=== PATIENT | male | born 2000 | race Caucasian/White ===

== ENCOUNTER 2019-03-18 23:48 | Emergency (ER) | payer OTHER, SELFPAY ==
[2019-03-19] MEDS ORDERED: CODEINE 30MG/APAP 300MG TAB ONE (00:15)
--- NOTE | 2019-03-19 00:55 | ER ---
Nurse's Notes [facility] Name: Deep Ramos Age: 18 yrs Sex: Male : 2000 Arrival Date: 03/18/2019 Time: 23:59 Bed 2 Private MD: Diagnosis: Pain in left ankle and joints of left foot Presentation: 03/18 23:59 Presenting complaint: Patient states: I landed on my left ankle wrong about three days la1 ago and it has been hurting since. Transition of care: patient was not received from another setting of care. Onset of symptoms was March 19, 2019. Risk Assessment: Do you want to hurt yourself or someone else? Patient reports no desire to harm self or others. Initial Sepsis Screen: Does the patient meet any 2 criteria? No. Patient's initial sepsis screen is negative. Does the patient have a suspected source of infection? No. Patient's initial sepsis screen is negative. Care prior to arrival: None. 23:59 Method Of Arrival: Wheelchair la1 23:59 Acuity: KAIT 4 la1 Historical: - Allergies: 03/19 00:01 No Known Allergies; la1 - PMHx: 00:01 None; la1 - PSHx: 00:01 Hand sx; elbow sx; la1 - Immunization history:: Adult Immunizations up to date. - Social history:: Smoking status: Patient/guardian denies using tobacco. - Ebola Screening: : No symptoms or risks identified at this time. Screenin:12 Abuse screen: Denies threats or abuse. Denies injuries from another. Nutritional rr5 screening: No deficits noted. Tuberculosis screening: No symptoms or risk factors identified. Fall Risk Fall in past 12 months (25 points). Ambulatory Aid- Crutches/Cane/Walker (15 pts). Gait- Impaired (20 pts.). Total Dowell Fall Scale indicates High Risk Score (45 or more points). Fall prevention measures have been instituted. Side Rails Up X 2 Placed Close to Nursing Station Frequent Obs/Assessments Occuring Family Present and informed to notify staff if the need to leave the bedside As available patient and family educated on Fall Prevention Program and Strategies. Assessment: 00:13 General: Appears in no apparent distress. comfortable, Behavior is calm, cooperative, rr5 appropriate for age. Pain: Complains of pain in left ankle Pain does not radiate. Pain currently is 0 out of 10 on a pain scale. at worst was 8 out of 10 on a pain scale. Quality of pain is described as aching, Pain began 2-3 days ago. Is intermittent. Neuro: Level of Consciousness is awake, alert, obeys commands, Oriented to person, place, time, situation, Appropriate for age. Cardiovascular: Capillary refill < 3 seconds Patient's skin is warm and dry. Respiratory: Airway is patent Respiratory effort is even, unlabored, Respiratory pattern is regular, symmetrical. GI: No signs and/or symptoms were reported involving the gastrointestinal system. : No signs and/or symptoms were reported regarding the genitourinary system. EENT: No signs and/or symptoms were reported regarding the EENT system. Derm: Skin is intact, Skin temperature is warm. Musculoskeletal: Circulation, motion, and sensation intact. Capillary refill < 3 seconds, Reports pain in left ankle. 01:05 Reassessment: Patient appears in no apparent distress at this time. Patient is alert, rr5 oriented x 3, equal unlabored respirations, skin warm/dry/pink. discharge instruction given and explained without complaints made, verbalized understanding Patient states feeling better. Patient states symptoms have improved. Vital Signs: 00:01 BP 112 / 74; Pulse 86; Resp 16; Temp 98.4; Pulse Ox 100% on R/A; Weight 77.11 kg; la1 Height 5 ft. 11 in. (180.34 cm); 01:05 BP 121 / 85; Pulse 85; Resp 16; Pulse Ox 98% on R/A; rr5 00:01 Body Mass Index 23.71 (77.11 kg, 180.34 cm) la1 ED Course: 03/18 23:59 Patient arrived in ED. la1 03/19 00:00 Triage completed. la1 00:01 Arm band placed on left wrist. la1 00:03 Deny Flower NP is PHCP. pm1 00:03 Sancho Appiah MD is Attending Physician. pm1 00:03 Jose Daniel Cortes RN is Primary Nurse. rr5 00:15 Patient has correct armband on for positive identification. Bed in low position. Call rr5 light in reach. Side rails up X2. 00:40 Ankle Left 3 View XRAY In Process Unspecified. EDMS 01:00 ankle air splint applied to left ankle. rr5 01:05 No provider procedures requiring assistance completed. Patient did not have IV access rr5 during this emergency room visit. Administered Medications: 00:20 Drug: Tylenol #3 (300 mg-30 mg) 1 tablet {Note: rass 0.} Route: PO; rr5 Outcome: 00:54 Discharge ordered by MD. pm1 01:05 Discharged to home ambulatory, with crutches, with family. rr5 01:05 Condition: stable 01:05 Discharge instructions given to patient, Instructed on discharge instructions, follow up and referral plans. medication usage, Demonstrated understanding of instructions, follow-up care, medications, Prescriptions given X 1. 01:06 Patient left the ED. rr5 Signatures: Dispatcher [employer] EDMS Sandeep Davison RN RN la1 Deny Flower, MU [employer]ST[employer]ER pm1 Jose Daniel Cortes RN RN rr5
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
[2019-03-19 01:24] VITALS: BP 112/74; TEMP 98.4; O2SAT 100
--- NOTE | 2019-03-19 08:28 | RAD REPORT ---
EXAM DESCRIPTION: RAD - Ankle Left 3 View - 03/19/2019 12:39 am CLINICAL HISTORY: Persistent left ankle pain following trauma COMPARISON: None. FINDINGS: No fracture, dislocation or periosteal reaction. No joint effusion seen. No joint space na rrowing. No soft tissue abnormality. IMPRESSION: Negative left ankle for fracture or other acute finding.
== END 2019-03-19 01:06 | disposition home or self-care (01) ==
LOC: ER 23:48
DX: M25.572 Pain in left ankle and joints of left foot (principal)
CPT/HCPCS: 99284

== ENCOUNTER 2019-05-10 23:52 | Emergency (ER) | payer SELFPAY ==
[2019-05-11] MEDS ORDERED: LIDOCAINE 1% W/EPI 1:100,000 MDV 20 ML VIAL ONE (00:29)
[2019-05-11] MEDS ORDERED: NA CHLORIDE 0.9% 1,000 ML ONE (00:29)
[2019-05-11] MEDS ORDERED: CEFAZOLIN/SWI 1gm 1 GM/10 ML SYR ONE ×2 (00:30→01:30)
[2019-05-11] MEDS ORDERED: TETANUS & DIPHTHERIA TOX,ADULT 0.5 ML VIAL ONE (00:30)
[2019-05-11 00:49] LABS: Absolute Lymphocytes (CBC) 2.9 K/uL (0.7-4.9); Basophils % 0.4 % (0-1.3); Hematocrit 45.1 % (39.6-49.0); Lymphocytes % 18.7 % (15.3-44.8); MPV 9.2 fL (7.6-11.3); RBC Red Blood Cell Count 5.13 M/uL (4.33-5.43)
[2019-05-11 00:55] LABS: Protime INR 0.97
[2019-05-11 01:16] LABS: BUN Blood Urea Nitrogen 14 mg/dL (7-18); Bicarbonate 29 mmol/L (21-32); Glucose Level 142 mg/dL (74-106); Potassium 3.7 mmol/L (3.5-5.1); Sodium Level 143 mmol/L (136-145)
[2019-05-11 01:29] LABS: ALT/SGPT 47 U/L (12-78); AST/SGOT 28 U/L (15-37); Albumin 4.2 g/dL (3.4-5.0); Alkaline Phosphatase 80 U/L (45-117); Bilirubin Direct < 0.1 mg/dL (0-0.2); Bilirubin Total 0.4 mg/dL (0.2-1.0)
[2019-05-11] MEDS ORDERED: AMOX TR/K CLAV 400MG CHEW TAB PO ONE (01:45)
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
[2019-05-11] MEDS ORDERED: ONDANSETRON 4 MG/2 ML VIAL ONE (02:14)
[2019-05-11] MEDS ORDERED: MORPHINE 4 MG/ML SYR ONE (02:14)
[2019-05-11 04:25] VITALS: TEMP 100
[2019-05-11 04:27] VITALS: BP 127/73; O2SAT 99
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
== END 2019-05-11 02:46 | disposition home or self-care (01) ==
LOC: ER 23:52
PROC: 0JQ10ZZ Repair Face Subcutaneous Tissue and Fascia, Open Approach (ICD-10-PCS; principal; 2019-05-11)
DX: S02.40CA Maxillary fracture, right side, initial encounter for closed fracture (principal); S02.85XA Fracture of orbit, unspecified, initial encounter for closed fracture; S00.431A Contusion of right ear, initial encounter; Y04.8XXA Assault by other bodily force, initial encounter; Y93.9 Activity, unspecified; Z72.0 Tobacco use; Z23 Encounter for immunization
CPT/HCPCS: 36415; 70450; 70486; 71045; 72125; 76377; 80048; 80076; 80320; 80329; 85025; 85610; 85730; 86850; 86900; 86901; 90471; 90714; 96361; 96374; 96375; 99285; J0690; J2405; J7030

== ENCOUNTER 2019-06-03 16:02 | Emergency (ER) | payer SELFPAY ==
--- NOTE | 2019-06-03 17:16 | ER ---
Nurse's Notes [facility] Name: Deep Ramos Age: 18 yrs Sex: Male : 2000 Arrival Date: 06/03/2019 Time: 16:03 Bed 25 Private MD: Diagnosis: Encounter for removal of sutures Presentation: 06/03 16:59 Presenting complaint: Patient states: Sutures need removed from the right yazidism area. rb1 Denies fever and pain. Transition of care: patient was not received from another setting of care. Onset of symptoms was May 10, 2019. Risk Assessment: Do you want to hurt yourself or someone else? Patient reports no desire to harm self or others. 16:59 Method Of Arrival: Ambulatory [facility] 16:59 Acuity: KAIT 4 rb1 17:00 Initial Sepsis Screen: Does the patient meet any 2 criteria? No. Patient's initial tr5 sepsis screen is negative. Does the patient have a suspected source of infection? No. Patient's initial sepsis screen is negative. 18:05 Care prior to arrival: None. tr5 Triage Assessment: 17:00 General: Appears Behavior is calm, cooperative. tr5 17:01 Pain: Denies pain. Neuro: Level of Consciousness is awake, alert, obeys commands, rb1 Oriented to person, place, time, situation. Cardiovascular: Capillary refill < 3 seconds is brisk in bilateral fingers. Respiratory: Airway is patent Respiratory effort is even, unlabored, Respiratory pattern is regular, symmetrical. Derm: Skin is pink, warm \T\ dry. Historical: - Allergies: 17:01 No Known Allergies; rb1 - Home Meds: 17:01 None [Active]; rb1 - PMHx: 17:01 None; rb1 - PSHx: 17:01 Hand sx; elbow sx; rb1 - Immunization history:: Adult Immunizations up to date. - Social history:: Smoking status: unknown. - Ebola Screening: : Patient negative for fever greater than or equal to 101.5 degrees Fahrenheit, and additional compatible Ebola Virus Disease symptoms. Screenin:15 Abuse screen: Denies threats or abuse. Abuse screen: Denies threats or abuse. tr5 Nutritional screening: No deficits noted. Tuberculosis screening: No symptoms or risk factors identified. Fall Risk None identified. Assessment: 17:00 General: Appears in no apparent distress. Behavior is calm, cooperative, appropriate tr5 for age. Pain: Denies pain. Neuro: Level of Consciousness is awake, alert, obeys commands, Oriented to person, place, time, [employer] are equal bilaterally Moves all extremities. Cardiovascular: Heart tones present Capillary refill < 3 seconds. Respiratory: Airway is patent. GI: No signs and/or symptoms were reported involving the gastrointestinal system. : No signs and/or symptoms were reported regarding the genitourinary system. EENT: No signs and/or symptoms were reported regarding the EENT system. Derm: No signs and/or symptoms reported regarding the dermatologic system. Musculoskeletal: No signs and/or symptoms reported regarding the musculoskeletal system. Vital Signs: 17:01 BP 109 / 83; Pulse 68; Resp 16; Temp 98.9(TE); Pulse Ox 98% on R/A; Weight 77.11 kg rb1 (R); Height 5 ft. 11 in. (180.34 cm) (R); Pain 0/10; 17:01 Body Mass Index 23.71 (77.11 kg, 180.34 cm) [facility] ED Course: 16:03 Patient arrived in ED. as 16:07 [facility] Thur[facility]. snw 16:07 Trent Mendoza MD is Attending Physician. snw 17:00 Triage completed. rb1 17:01 Arm band placed on left wrist. rb1 17:15 Patient has correct armband on for positive identification. Bed in low position. Call tr5 light in reach. 17:21 No provider procedures requiring assistance completed. Patient did not have IV access ss during this emergency room visit. 18:02 Og Gore RN is Primary Nurse. tr5 Administered Medications: No medications were administered Outcome: 17:15 Discharge ordered by . snw 17:21 Discharged to home ambulatory. ss 17:21 Condition: good 17:21 Discharge instructions given to patient, family, Instructed on discharge instructions, follow up and referral plans. medication usage, Demonstrated understanding of instructions, follow-up care, wound care. 18:07 Patient left the ED. tr5 Signatures: Zita Thurston FNP-C FNP-Regina Elizondo Shelby, RN RN Emilia Olson RN RN rb1 Og Gore RN RN tr5
--- NOTE | 2019-06-03 17:17 | EDPHYS ---
Physician Documentation [facility] Name: Deep Ramos Age: 18 yrs Sex: Male : 2000 Arrival Date: 06/03/2019 Time: 16:03 Bed 25 Private MD: ED Physician Trent Mendoza HPI: 06/03 17:29 This 18 yrs old Male presents to ER via Ambulatory with complaints of Suture snw Removal. 17:29 The patient has sutures on the right temporal area. Previous treatment: The patient was snw initially treated on May 11, 2019. Sutures/denita progress: The patient has no c/o's. The wound is well-healing with no redness, swelling, discharge, or dehiscence reported. It is unknown whether or not the patient has had similar symptoms in the past. The patient has not recently seen a physician. Historical: - Allergies: 17:01 No Known Allergies; rb1 - Home Meds: 17:01 None [Active]; rb1 - PMHx: 17:01 None; rb1 - PSHx: 17:01 Hand sx; elbow sx; rb1 - Immunization history:: Adult Immunizations up to date. - Social history:: Smoking status: unknown. - Ebola Screening: : Patient negative for fever greater than or equal to 101.5 degrees Fahrenheit, and additional compatible Ebola Virus Disease symptoms. ROS: 17:29 Constitutional: Negative for fever, chills, and weight loss, Eyes: Negative for injury, snw pain, redness, and discharge, ENT: Negative for injury, pain, and discharge, Neck: Negative for injury, pain, and swelling, Cardiovascular: Negative for chest pain, palpitations, and edema, Respiratory: Negative for shortness of breath, cough, wheezing, and pleuritic chest pain, Abdomen/GI: Negative for abdominal pain, nausea, vomiting, diarrhea, and constipation, Back: Negative for injury and pain, : Negative for injury, bleeding, discharge, and swelling, MS/Extremity: Negative for injury and deformity, Neuro: Negative for headache, weakness, numbness, tingling, and seizure, Psych: Negative for depression, anxiety, suicide ideation, homicidal ideation, and hallucinations. 17:29 Skin: Positive for here for suture removal from 05/11/19. Exam: 17:19 Constitutional: This is a well developed, well nourished patient who is awake, alert, snw and in no acute distress. Eyes: Pupils equal round and reactive to light, extra-ocular motions intact. Lids and lashes normal. Conjunctiva and sclera are non-icteric and not injected. Cornea within normal limits. Periorbital areas with no swelling, redness, or edema. ENT: Nares patent. No nasal discharge, no septal abnormalities noted. Tympanic membranes are normal and external auditory canals are clear. Oropharynx with no redness, swelling, or masses, exudates, or evidence of obstruction, uvula midline. Mucous membranes moist. Neck: Trachea midline, no thyromegaly or masses palpated, and no cervical lymphadenopathy. Supple, full range of motion without nuchal rigidity, or vertebral point tenderness. No Meningismus. Chest/axilla: Normal chest wall appearance and motion. Nontender with no deformity. No lesions are appreciated. Cardiovascular: Regular rate and rhythm with a normal S1 and S2. No gallops, murmurs, or rubs. Normal PMI, no JVD. No pulse deficits. Respiratory: Lungs have equal breath sounds bilaterally, clear to auscultation and percussion. No rales, rhonchi or wheezes noted. No increased work of breathing, no retractions or nasal flaring. Abdomen/GI: Soft, non-tender, with normal bowel sounds. No distension or tympany. No guarding or rebound. No evidence of tenderness throughout. Back: No spinal tenderness. No costovertebral tenderness. Full range of motion. Skin: Warm, dry with normal turgor. Normal color with no rashes, no lesions, and no evidence of cellulitis. MS/ Extremity: Pulses equal, no cyanosis. Neurovascular intact. Full, normal range of motion. Neuro: Awake and alert, GCS 15, oriented to person, place, time, and situation. Cranial nerves II-XII grossly intact. Motor strength 5/5 in all extremities. Sensory grossly intact. Cerebellar exam normal. Normal gait. 17:19 Head/face: Noted is healed laceration noted to right gnosticism area, area scabbed over, no noted s/s infection. Vital Signs: 17:01 BP 109 / 83; Pulse 68; Resp 16; Temp 98.9(TE); Pulse Ox 98% on R/A; Weight 77.11 kg rb1 (R); Height 5 ft. 11 in. (180.34 cm) (R); Pain 0/10; 17:01 Body Mass Index 23.71 (77.11 kg, 180.34 cm) rb1 MDM: 17:12 Patient medically screened. [facility] 17:28 Data reviewed: vital signs, nurses notes. Data interpreted: Pulse oximetry: on room air snw is 98 %. Interpretation: normal. Counseling: I had a detailed discussion with the patient and/or guardian regarding: the historical points, exam findings, and any diagnostic results supporting the discharge/admit diagnosis, the need for outpatient follow up, to return to the emergency department if symptoms worsen or persist or if there are any questions or concerns that arise at home. Special discussion: Based on the patient's history, exam and DX evaluation, there is no indication for emergent intervention or inpatient TX. It is understood by the patient/guardian that if the SXs persist or worsen they need to return immediately for re-evaluation. Based on the history and exam findings, there is no indication for further emergent testing or inpatient evaluation. I discussed with the patient/guardian the need to see the primary care provider for further evaluation of the symptoms. Administered Medications: No medications were administered Disposition: 06/03/19 17:15 Discharged to Home. Impression: Encounter for removal of sutures. - Condition is Stable. - Discharge Instructions: Suture Removal, Care After. - Medication Reconciliation Form, Thank You Letter, Antibiotic Education, Prescription Opioid Use form. - Follow up: Private Physician; When: 2 - 3 days; Reason: Recheck today's complaints, Continuance of care, Re-evaluation by your physician. Follow up: Emergency Department; When: As needed; Reason: Worsening of condition. Addendum: 06/11/2019 11:12 Co-signature as Attending Physician, Trent Mendoza MD I agree with the assessment and c pereyra plan of care. Signatures: Trent Mendoza MD MD cha Therrien, Shelly, SOLUTION MANAGER-C SOLUTION MANAGER-Csnw Emilia Olson, RN RN rb1 Og Gore RN RN tr5 Corrections: (The following items were deleted from the chart) 06/03 18:07 17:15 06/03/2019 17:15 Discharged to Home. Impression: Encounter for removal of tr5 sutures. Condition is Stable. Forms are Medication Reconciliation Form, Thank You Letter, Antibiotic Education, Prescription Opioid Use. Follow up: Private Physician; When: 2 - 3 days; Reason: Recheck today's complaints, Continuance of care, Re-evaluation by your physician. Follow up: Emergency Department; When: As needed; Reason: Worsening of condition. snkj
[2019-06-03 20:08] VITALS: BP 109/83; TEMP 98.9; O2SAT 98
== END 2019-06-03 18:07 | disposition home or self-care (01) ==
LOC: ER 16:02
DX: Z48.02 Encounter for removal of sutures (principal)
CPT/HCPCS: 99281

== ENCOUNTER 2020-11-23 21:35 | Emergency (ER) | payer SELFPAY ==
--- NOTE | 2020-11-23 23:46 | EDPHYS ---
Physician Documentation [facility] Name: Deep Ramos Age: 20 yrs Sex: Male : 2000 Arrival Date: 11/23/2020 Time: 21:47 Bed 7 Private MD: ED Physician Gil Underwood HPI: 11/23 22:30 This 20 yrs old Male presents to ER via Ambulatory with complaints of jmm Laceration To Head. 22:30 Onset: The symptoms/episode began/occurred acutely, just prior to arrival. Associated jmm signs and symptoms: Pertinent negatives: loss of consciousness. Patient states he fell off a skateboard hitting his head, denies loc, vomiting. Unsure on tetanus immunization status. Historical: - Allergies: 21:57 No Known Allergies; ea - Home Meds: 21:57 None [Active]; ea - PMHx: 21:57 None; ea - PSHx: 21:57 Hand sx; elbow sx; ea - Immunization history:: Adult Immunizations up to date. - Social history:: Smoking status: unknown. ROS: 22:30 Constitutional: Negative for fever, chills, and weight loss, Cardiovascular: Negative jmm for chest pain, palpitations, and edema, Respiratory: Negative for shortness of breath, cough, wheezing, and pleuritic chest pain. 22:30 Neck: Positive for pain with movement. 22:30 Neuro: Positive for headache. 22:30 All other systems are negative. Exam: 22:30 Constitutional: This is a well developed, well nourished patient who is awake, alert, jmm and in no acute distress. 22:30 Eyes: EOMI, no conjunctival erythema appreciated ENT: Moist Mucus Membranes 22:30 Cardiovascular: Regular rate and rhythm. No edema appreciated Respiratory: Normal respirations, no respiratory distress appreciated Abdomen/GI: Non distended, soft Back: Normal ROM Skin: General appearance color normal MS/ Extremity: Moves all extremities, no obvious deformities appreciated, no edema noted to the lower extremities Neuro: Awake and alert, normal gait Psych: Behavior is normal, Mood is normal, Patient is cooperative and pleasant 22:30 Head/face: laceration noted to the frontal scalp. 22:30 Neck: C-spine: vertebral tenderness, that is mild, appreciated at C1 and C2. Vital Signs: 21:54 BP 128 / 82; Pulse 80; Resp 16; Temp 98.0; Pulse Ox 98% ; Weight 92.99 kg; Height 5 ft. ea 11 in. (180.34 cm); 21:54 Body Mass Index 28.59 (92.99 kg, 180.34 cm) ea MDM: 22:27 Patient medically screened. ann 23:44 Data reviewed: vital signs, nurses notes. Counseling: I had a detailed discussion with ann the patient and/or guardian regarding: the historical points, exam findings, and any diagnostic results supporting the discharge/admit diagnosis, radiology results, the need for outpatient follow up, to return to the emergency department if symptoms worsen or persist or if there are any questions or concerns that arise at home. ED course: Patient is alert and non toxic in appearance in the ED. Laceration, superfical. Advised to follow up with pcp and otherwise given strict return precautions. patient understood and agrees with the plan of care. . 11/23 22:30 Order name: CT Head C Spine ann Administered Medications: 23:52 Not Given (Physician Discretion): Lidocaine (1 %) 20 ml 20 ml Infiltration once; to jb4 bedside Disposition: 11/24 04:16 Co-signature as Attending Physician, Gil Underwood MD. 7 Disposition: 11/23/20 23:45 Discharged to Home. Impression: Superficial injury of head. - Condition is Stable. - Discharge Instructions: Head Injury, Adult, Nonsutured Laceration Care. - Medication Reconciliation Form, Thank You Letter, Antibiotic Education, Prescription Opioid Use form. - Follow up: Private Physician; When: 2 - 3 days; Reason: Recheck today's complaints, Continuance of care, Re-evaluation by your physician. Signatures: Dispatcher [employer] EDMS Salvatore Coronado PA PA jmm Bryson, James, RN RN jb4 Nga Dangelo RN RN ea Holmes, Maurice, MD MD 7 Corrections: (The following items were deleted from the chart) 11/23 23:54 23:45 11/23/2020 23:45 Discharged to Home. Impression: Superficial injury of head. jb4 Condition is Stable. Forms are Medication Reconciliation Form, Thank You Letter, Antibiotic Education, Prescription Opioid Use. Follow up: Private Physician; When: 2 - 3 days; Reason: Recheck today's complaints, Continuance of care, Re-evaluation by your physician. ann
--- NOTE | 2020-11-23 23:46 | ER ---
Nurse's Notes [facility] Name: Deep Ramos Age: 20 yrs Sex: Male : 2000 Arrival Date: 11/23/2020 Time: 21:47 Bed 7 Private MD: Diagnosis: Superficial injury of head Presentation: 11/23 21:54 Chief complaint: Patient states: Reports he was skateboarding and hit his head on a ea rail. Pt reports it happened about an hour ago. Denied LOC. Coronavirus screen: At this time, the client does not indicate any symptoms associated with coronavirus-19. Ebola Screen: No symptoms or risks identified at this time. Complicating Factors: There are no complicating factors for this patient. Initial Sepsis Screen: Does the patient meet any 2 criteria? No. Patient's initial sepsis screen is negative. Does the patient have a suspected source of infection? No. Patient's initial sepsis screen is negative. Risk Assessment: Do you want to hurt yourself or someone else? Patient reports no desire to harm self or others. Onset of symptoms was November 23, 2020. 21:54 Method Of Arrival: Ambulatory ea 21:54 Acuity: KAIT 3 ea Triage Assessment: 21:58 General: Appears in no apparent distress. Behavior is calm, cooperative, appropriate ea for age. Pain: Complains of pain in top of head. Neuro: Level of Consciousness is awake, alert, obeys commands, Oriented to person, place, time. Cardiovascular: Patient's skin is warm and dry. Respiratory: Airway is patent Respiratory effort is even, unlabored, Respiratory pattern is regular, symmetrical. Injury Description: Laceration sustained to top of head is 0.5 to 2.5 cm long, was sustained less than 30 minutes ago. Historical: - Allergies: 21:57 No Known Allergies; ea - Home Meds: 21:57 None [Active]; ea - PMHx: 21:57 None; ea - PSHx: 21:57 Hand sx; elbow sx; ea - Immunization history:: Adult Immunizations up to date. - Social history:: Smoking status: unknown. Screenin:48 Abuse screen: Denies threats or abuse. Denies injuries from another. Nutritional lp1 screening: No deficits noted. Tuberculosis screening: No symptoms or risk factors identified. Fall Risk None identified. Assessment: 22:45 General: Appears in no apparent distress. Behavior is calm, cooperative. Pain: lp1 Complains of pain in back of neck Pain currently is 4 out of 10 on a pain scale. Quality of pain is described as aching. Neuro: Level of Consciousness is awake, alert, obeys commands, Oriented to person, place, time, situation, Gait is steady. Cardiovascular: Patient's skin is warm and dry. Respiratory: Respiratory effort is even, unlabored. GI: No signs and/or symptoms were reported involving the gastrointestinal system. : No signs and/or symptoms were reported regarding the genitourinary system. EENT: No signs and/or symptoms were reported regarding the EENT system. Derm: Skin is pink, warm \T\ dry. Wound noted Wound is Laceration to top of scalp, not actively bleeding. Musculoskeletal: Circulation, motion, and sensation intact. Range of motion: intact in all extremities. Injury Description: Laceration sustained to top of head is jagged, superficial, not bleeding. Vital Signs: 21:54 BP 128 / 82; Pulse 80; Resp 16; Temp 98.0; Pulse Ox 98% ; Weight 92.99 kg; Height 5 ft. ea 11 in. (180.34 cm); 21:54 Body Mass Index 28.59 (92.99 kg, 180.34 cm) ea ED Course: 21:47 Patient arrived in ED. cf2 21:55 Salvatore Coronado PA is PHCP. jmm 21:55 Gil Underwood MD is Attending Physician. jmm 21:57 Triage completed. ea 21:58 Arm band placed on right wrist. ea 22:27 Alfreda Fowler, SUDHEER is Primary Nurse. lp1 22:48 Patient has correct armband on for positive identification. lp1 22:48 Wound care: to laceration located on top of head was cleaned with Hibiclens, irrigated lp1 with normal saline. 23:11 CT Head C Spine In Process Unspecified. EDMS 23:53 No provider procedures requiring assistance completed. Patient did not have IV access jb4 during this emergency room visit. Administered Medications: 23:52 Not Given (Physician Discretion): Lidocaine (1 %) 20 ml 20 ml Infiltration once; to jb4 bedside Outcome: 23:45 Discharge ordered by . jmm 23:53 Discharged to home ambulatory, with friend. jb4 23:53 Condition: stable 23:53 Discharge instructions given to patient, Instructed on discharge instructions, follow up and referral plans. Demonstrated understanding of instructions, follow-up care. 23:54 Patient left the ED. jb4 Signatures: Dispatcher [employer] EDSalvatore Alfaro PA PA jmm Pena, Laura RN RN lp1 Natalio Cohen RN RN jb4 Nga Dangelo RN Mine Sol ea 2
[2020-11-24 00:09] VITALS: BP 128/82; TEMP 98; O2SAT 98
--- NOTE | 2020-11-24 11:32 | RAD REPORT ---
EXAM DESCRIPTION: CT - [id number] - 11/24/2020 7:08 am CLINICAL HISTORY: Head injury. TECHNIQUE: Axial, coronal, and sagittal images through the brain were performed in the absence of in travenous contrast. CT of the cervical spine was performed without contrast. Axial, coronal, and sagittal reconstructions were created and sent to PACS. These exams were performed according to our departmental dose-optimization program which includes use of Automated Exposure Control, adjustment of the mA and/or kV according to patient size and/or use o f iterative reconstruction technique. COMPARISON: Report only for a CT of the head and C-spine from May 11, 2019. FINDINGS: CT Head: The brain parenchyma appears unremarkable. There is no intra-axial or extra-axial bleed seen. There i s no mass or mass effect. The ventricles are normal in size shape and configuration. The orbital cont ents appear unremarkable. The visualized paranasal sinuses and mastoid air cells are patent. Small left superior frontal scalp hematoma. No fracture is identified. CT cervical spine: No acute osseous abnormality identified. Vertebral body height and alignment are maintained. No atlan todental interval widening. Atlantoaxial alignment is maintained. No significant central canal or rani roforaminal narrowing throughout the cervical spine. Paraspinal soft tissues: Unremarkable. IMPRESSION: 1. No acute intracranial abnormality identified. 2. No acute osseous abnormality identified in the cervical spine. Electronically signed by: Nhung Gurrola MD 11/23/2020 11:26 PM CDT Due to temporary technical issues with the PACS/Fluency reporting system, reports are being signed by the in house radiologists without review as a courtesy to insure prompt reporting. The interpreting radiologist is fully responsible for the content of the report.
== END 2020-11-23 23:54 | disposition home or self-care (01) ==
LOC: ER 21:35
DX: S01.01XA Laceration without foreign body of scalp, initial encounter (principal); V00.131A Fall from skateboard, initial encounter
CPT/HCPCS: 70450; 72125; 99283

== ENCOUNTER 2021-06-05 11:55 | Emergency (ER) | payer SELFPAY ==
[2021-06-05 21:16] LABS: SARS-COV-2 RT PCR POSITIVE (NEGATIVE)
--- NOTE | 2021-06-05 21:25 | EDPHYS ---
Physician Documentation [facility] Name: Deep Ramos Age: 20 yrs Sex: Male : 2000 Arrival Date: 06/05/2021 Time: 11:59 Bed DIS1 Private MD: ED Physician Gil Underwood HPI: 06/05 23:28 This 20 yrs old Male presents to ER via Ambulatory with complaints of Sore Throat. kb 23:28 The patient presents with sore throat. The patient describes throat pain as constant. kb Onset: The symptoms/episode began/occurred 4 day(s) ago. Severity of symptoms: At their worst the symptoms were moderate, in the emergency department the symptoms are unchanged. Modifying factors: The symptoms are alleviated by nothing, the symptoms are aggravated by nothing. Associated signs and symptoms: Pertinent positives: chills, fever, flu-like symptoms, myalgias, Sore throat. The patient has not experienced similar symptoms in the past. The patient has not recently seen a physician. Historical: - Allergies: 13:05 No Known Allergies; pereyra - Home Meds: 13:05 None [Active]; pereyra - PSHx: 13:05 None; pereyra - Immunization history:: Adult Immunizations up to date. - Social history:: Smoking status: Patient denies any tobacco usage or history of. ROS: 23:28 Respiratory: Negative for shortness of breath, cough, wheezing, and pleuritic chest kb pain. 23:28 Constitutional: Positive for body aches, chills, fever. 23:28 ENT: Positive for sore throat. 23:28 All other systems are negative. Exam: 23:28 Constitutional: This is a well developed, well nourished patient who is awake, alert, kb and in no acute distress. Head/Face: Normocephalic, atraumatic. ENT: Moist Mucous membranes Cardiovascular: Regular rate and rhythm with a normal S1 and S2. No gallops, murmurs, or rubs. No pulse deficits. Respiratory: Respirations even and unlabored. No increased work of breathing. Talking in full sentences Skin: Warm, dry with normal turgor. Normal color. MS/ Extremity: Pulses equal, no cyanosis. Neurovascular intact. Full, normal range of motion. Neuro: Awake and alert, GCS 15, oriented to person, place, time, and situation. Moves all extremities. Normal gait. Psych: Awake, alert, with orientation to person, place and time. Behavior, mood, and affect are within normal limits. 23:28 ENT: Posterior pharynx: is normal. Vital Signs: 13:03 BP 119 / 88; Pulse 73; Resp 18; Temp 98.8; Pulse Ox 99% on R/A; Weight 95.25 kg; Height pereyra 5 ft. 11 in. (180.34 cm) (R); 18:39 BP 135 / 78 LA Sitting (auto/reg); Pulse 84; Resp 16 S; Pulse Ox 100% on R/A; mb4 20:55 BP 120 / 81; Pulse 83; Resp 18; Temp 98.2; Pulse Ox 98% on R/A; tt3 13:03 Body Mass Index 29.29 (95.25 kg, 180.34 cm) pereyra MDM: 20:17 Patient medically screened. kb 23:27 Data reviewed: vital signs, nurses notes. Data interpreted: Pulse oximetry: on room air kb is 98 %. Interpretation: normal. Counseling: I had a detailed discussion with the patient and/or guardian regarding: the historical points, exam findings, and any diagnostic results supporting the discharge/admit diagnosis, lab results, the need for outpatient follow up, a family practitioner, to return to the emergency department if symptoms worsen or persist or if there are any questions or concerns that arise at home. 06/05 20:24 Order name: Strep; Complete Time: 20:56 kb 06/05 20:24 Order name: COVID-19/FLU A+B (Document "Date of Onset" if Symptomatic); Complete Time: kb 21:24 06/05 20:56 Order name: Throat Culture EDMS Administered Medications: No medications were administered Disposition: 06/06 06:40 Co-signature as Attending Physician, Gil Underwood MD. [email or web address] Disposition Summary: 06/05/21 21:25 Discharge Ordered Location: Home Condition: Stable kb Diagnosis - Coronavirus infection, unspecified kb Followup: kb - With: Emergency Department - When: As needed - Reason: Worsening of condition Followup: kb - With: Private Physician - When: 2 - 3 days - Reason: Recheck today's complaints, Continuance of care, Re-evaluation by your physician Discharge Instructions: - Discharge Summary Sheet kb - Viral Respiratory Infection, [id number] kb - COVID-19 kb Forms: - Medication Reconciliation Form kb - Thank You Letter kb - Antibiotic Education kb - Prescription Opioid Use kb Signatures: Dispatcher [employer] Suzi James, QUARANTINE INSPECTOR-C Gil Monson MD MD [email or web address] Quynh Garcia RN RN pereyra Corrections: (The following items were deleted from the chart) 06/05 23:28 23:27 Counseling: I had a detailed discussion with the patient and/or guardian shay regarding: the historical points, exam findings, and any diagnostic results supporting the discharge/admit diagnosis, lab results, radiology results, the need for outpatient follow up, a family practitioner, to return to the emergency department if symptoms worsen or persist or if there are any questions or concerns that arise at home, kb
--- NOTE | 2021-06-05 21:25 | ER ---
Nurse's Notes [facility] Name: Deep Ramos Age: 20 yrs Sex: Male : 2000 Arrival Date: 06/05/2021 Time: 11:59 Bed DIS1 Private MD: Diagnosis: Coronavirus infection, unspecified Presentation: 06/05 13:03 Chief complaint: Patient states: pt reported sore throat x4 days. Coronavirus screen: Vaccine status: Patient reports being unvaccinated. Ebola Screen: Patient denies travel to an Ebola-affected area in the 21 days before illness onset. Initial Sepsis Screen: Does the patient meet any 2 criteria? No. Patient's initial sepsis screen is negative. Does the patient have a suspected source of infection? No. Patient's initial sepsis screen is negative. Risk Assessment: Do you want to hurt yourself or someone else? Patient reports no desire to harm self or others. Onset of symptoms was May 31, 2021. 13:03 Method Of Arrival: Ambulatory 13:03 Acuity: KAIT 4 pereyra Triage Assessment: 13:05 General: Appears in no apparent distress. distressed, Behavior is calm, cooperative. pereyra Pain: Complains of pain in neck. EENT: Reports pain when swallowing throat pain Pain is 10 out of 10 on a pain scale. Historical: - Allergies: 13:05 No Known Allergies; pereyra - Home Meds: 13:05 None [Active]; pereyra - PSHx: 13:05 None; pereyra - Immunization history:: Adult Immunizations up to date. - Social history:: Smoking status: Patient denies any tobacco usage or history of. Vital Signs: 13:03 BP 119 / 88; Pulse 73; Resp 18; Temp 98.8; Pulse Ox 99% on R/A; Weight 95.25 kg; Height pereyra 5 ft. 11 in. (180.34 cm) (R); 18:39 BP 135 / 78 LA Sitting (auto/reg); Pulse 84; Resp 16 S; Pulse Ox 100% on R/A; mb4 20:55 BP 120 / 81; Pulse 83; Resp 18; Temp 98.2; Pulse Ox 98% on R/A; tt3 13:03 Body Mass Index 29.29 (95.25 kg, 180.34 cm) ED Course: 11:59 Patient arrived in ED. mr 13:05 Triage completed. pereyra 13:05 Arm band placed on right wrist. pereyra 20:17 Suzi London FNP-C is [facility]. kb 20:17 Gil Underwood MD is Attending Physician. kb Administered Medications: No medications were administered Outcome: 21:25 Discharge ordered by . kb 21:28 Patient left the ED. bb Signatures: Suzi London FNP-C FNP-Patsy Rivera mr Leonor Arriaza, RN RN bb Connie Graf mb4 Deep Martinez tt3 Masha-StagerQuynh RN RN pereyra
[2021-06-05 21:35] VITALS: BP 120/81; TEMP 98.2; O2SAT 98
== END 2021-06-05 21:28 | disposition home or self-care (01) ==
LOC: ER 11:55
DX: U07.1 COVID-19 (principal)
CPT/HCPCS: 0240U; 87070; 87081; 99281

== ENCOUNTER 2023-09-27 15:45 | Emergency (ER) | payer OTHER, SELFPAY ==
--- NOTE | 2023-09-27 16:26 | ER ---
Nurse's Notes [facility] Name: Deep Ramos Age: 23 yrs Sex: Male : 2000 Arrival Date: 09/27/2023 Time: 15:45 Bed 13 Private MD: Diagnosis: Chalazion right upper eyelid Presentation: 09/26 16:07 Chief complaint: Patient states: he has been getting "cysts on his eyes for about a ap3 year" because he works out and sweats a lot. Coronavirus screen: At this time, the client does not indicate any symptoms associated with coronavirus-19. Ebola Screen: No symptoms or risks identified at this time. Initial Sepsis Screen: Does the patient meet any 2 criteria? No. Patient's initial sepsis screen is negative. Does the patient have a suspected source of infection? No. Patient's initial sepsis screen is negative. Risk Assessment: Do you want to hurt yourself or someone else? Patient reports no desire to harm self or others. Onset of symptoms is unknown. 16:07 Method Of Arrival: Ambulatory ap3 16:07 Acuity: KAIT 5 ap3 Triage Assessment: 16:10 General: Appears in no apparent distress. Behavior is calm, cooperative. Pain: ap3 Complains of pain in right upper eyelid. Neuro: Level of Consciousness is awake, alert, obeys commands, Oriented to person, place, time, situation, Moves all extremities. Gait is steady, Speech is normal. Cardiovascular: Patient's skin is warm and dry. Respiratory: Airway is patent Respiratory effort is even, unlabored, Respiratory pattern is regular, symmetrical. Historical: - Allergies: 16:09 No Known Allergies; ap3 - Home Meds: 16:09 None [Active]; ap3 - PMHx: 16:09 Anxiety; ap3 - Immunization history:: Client reports having NOT received the Covid vaccine. Flu vaccine is not up to date. - Infectious Disease History:: Denies. - Social history:: Smoking status: Patient denies any tobacco usage or history of. Patient uses street drugs, marijuana. Screenin:10 Abuse screen: Denies threats or abuse. Nutritional screening: No deficits noted. ap3 Tuberculosis screening: No symptoms or risk factors identified. 16:14 [facility] ED Fall Risk Assessment (Adult) History of falling in the last 3 months, me1 including since admission No falls in past 3 months (0 pts) Confusion or Disorientation No (0 pts) Intoxicated or Sedated No (0 pts) Impaired Gait No (0 pts) Mobility Assist Device Used No (0 pt) Altered Elimination No (0 pt) Score/Fall Risk Level 0 - 2 = Low Risk Maintained a safe environment, Provided non-skid footwear, Hourly rounding (assess needs \\T\\ fall precautionary measures) done. Assessment: 16:11 General: Appears comfortable, well developed, well nourished, Behavior is calm, me1 cooperative, appropriate for age. Pain: Complains of pain in right eye and right upper eyelid. 16:14 Neuro: Level of Consciousness is awake, alert, obeys commands, Oriented to person, me1 place, time, situation, Appropriate for age. Cardiovascular: Capillary refill < 3 seconds Patient's skin is warm and dry. Respiratory: Airway is patent Respiratory effort is even, unlabored, Respiratory pattern is regular, symmetrical. GI: No signs and/or symptoms were reported involving the gastrointestinal system. : No signs and/or symptoms were reported regarding the genitourinary system. EENT: Lid(s) red, raised nodule on right upper eye lid. Derm: Skin is intact, is healthy with good turgor, Skin is pink, warm \\T\\ dry. Musculoskeletal: No signs and/or symptoms reported regarding the musculoskeletal system. Vital Signs: 16:00 BP 132 / 85; Pulse 83; Resp 16; Pulse Ox 100% on R/A; me1 16:07 BP 136 / 97; Pulse 80; Resp 16; Temp 98.8; Pulse Ox 100% ; Weight 88.45 kg; ap3 ED Course: 15:45 Patient arrived in ED. rg4 15:46 Su[facility] London [facility]-C [facility]. kb 15:46 Kareem Izquierdo MD is Attending Physician. kb 16:04 Tanja Morataya, SUDHEER is Primary Nurse. me1 16:09 Triage completed. ap3 16:10 Arm band placed on right wrist. ap3 16:10 Patient has correct armband on for positive identification. Bed in low position. Call ap3 light in reach. Side rails up X 1. Adult w/ patient. Pulse ox on. NIBP on. 16:14 Provided Education on: POC. Verbalized understanding.. me1 16:14 No provider procedures requiring assistance completed. Patient did not have IV access me1 during this emergency room visit. Administered Medications: No medications were administered Medication: 16:14 VIS not applicable for this client. me1 Outcome: 16:26 Discharge ordered by . kb 16:39 Discharged to home ambulatory, me1 16:39 Condition: stable 16:39 Condition: stable 16:39 Discharge instructions given to patient, Instructed on discharge instructions, follow up and referral plans. medication usage, Demonstrated understanding of instructions, follow-up care, medications, Prescriptions given X 1, 16:39 Patient left the ED. me1 Signatures: Suzi London, MILL CONTROLLER-C MILL CONTROLLER-Palma Keith rg4 Nikkie Frazier, RN RN ap3 Tanja Morataya RN RN me1
--- NOTE | 2023-09-27 16:27 | EDPHYS ---
Physician Documentation [facility] Name: Deep Ramos Age: 23 yrs Sex: Male : 2000 Arrival Date: 09/27/2023 Time: 15:45 Bed 13 Private MD: ED Physician Kareem Izquierdo HPI: 09/26 17:33 This 23 yrs old Male presents to ER via Ambulatory with complaints of Eye Problem. kb 17:34 Pt is a 23 year old male who presents for "a red ball" on the right upper eyelid that kb started a few days ago. States he gets styes quite a bit and had one a week ago, used warm compresses and it got better, but now this ball has appeared. Denies visual deficits, pain, fever, drainage. . Historical: - Allergies: 16:09 No Known Allergies; ap3 - Home Meds: 16:09 None [Active]; ap3 - PMHx: 16:09 Anxiety; ap3 - Immunization history:: Client reports having NOT received the Covid vaccine. Flu vaccine is not up to date. - Infectious Disease History:: Denies. - Social history:: Smoking status: Patient denies any tobacco usage or history of. Patient uses street drugs, marijuana. ROS: 17:33 Constitutional: As per HPI kb Exam: 17:33 Constitutional: This is a well developed, well nourished patient who is awake, alert, kb and in no acute distress. Head/Face: Normocephalic, atraumatic. ENT: Moist Mucous membranes Cardiovascular: Regular rate Respiratory: Respirations even and unlabored. No increased work of breathing. Talking in full sentences Skin: Warm, dry with normal turgor. Normal color. MS/ Extremity: Pulses equal, no cyanosis. Neurovascular intact. Full, normal range of motion. Neuro: Awake and alert, GCS 15, oriented to person, place, time, and situation. Moves all extremities. Normal gait. 17:33 Eyes: Pupils: equal, round, and reactive to light and accomodation, Extraocular movements: intact throughout, Conjunctiva: normal, Corneas: are normal, Lids and lashes: chalazion to right upper eyelid. Vital Signs: 16:00 BP 132 / 85; Pulse 83; Resp 16; Pulse Ox 100% on R/A; me1 16:07 BP 136 / 97; Pulse 80; Resp 16; Temp 98.8; Pulse Ox 100% ; Weight 88.45 kg; ap3 MDM: 15:46 Patient medically screened. kb 17:34 Differential diagnosis: Corneal abrasion of Corneal ulcer of Foreign body in shay vega. Data reviewed: vital signs, nurses notes. Counseling: I had a detailed discussion with the patient and/or guardian regarding the historical points, exam findings, and any diagnostic results supporting the discharge/admit diagnosis, the need for outpatient follow up, an opthalmologist, to return to the emergency department if symptoms worsen or persist or if there are any questions or concerns that arise at home. Administered Medications: No medications were administered Disposition: 19:53 Co-signature as Attending Physician, Kareem Izquierdo MD I reviewed the patient's care rn provided by the Advanced Practice Provider and agree with the diagnosis and treatment plan. Disposition Summary: 09/27/23 16:26 Discharge Ordered Notes: Location: Home kb Condition: Stable kb Diagnosis - Chalazion right upper eyelid kb Followup: kb - With: Emergency Department - When: As needed - Reason: Worsening of condition Followup: kb - With: Private Physician - When: 2 - 3 days - Reason: Recheck today's complaints, Continuance of care, Re-evaluation by your physician Discharge Instructions: - Discharge Summary Sheet shay - Casey kb Forms: - Medication Reconciliation Form kb - Antibiotic Education kb - Prescription Opioid Use kb - Patient Portal Instructions kb - Leadership Thank You Letter Prescriptions: - Vigamox 0.5 % Ophthalmic Drops - instill 1 drop OPHTHALMIC route every 8 hours for 7 days; 5 milliliter; kb Refills: 0, Product Selection Permitted Signatures: Suzi London, WEBSPHERE COMMERCE DEVELOPER-C WEBSPHERE COMMERCE DEVELOPER-Kareem Marsh MD MD rn Prokisch, Amanda, RN RN ap3
[2023-09-27 17:23] VITALS: BP 136/97; TEMP 98.8; O2SAT 100
== END 2023-09-27 16:39 | disposition home or self-care (01) ==
LOC: ER 15:45
DX: H00.11 Chalazion right upper eyelid (principal)
CPT/HCPCS: 99283

== ENCOUNTER 2023-12-02 01:33 | Emergency (ER) | payer OTHER ==
[2023-12-02] MEDS ORDERED: KETOROLAC 30 MG/ML INJ ONE (02:32)
--- NOTE | 2023-12-02 02:49 | EDPHYS ---
Physician Documentation [facility] Name: Deep Ramos Age: 23 yrs Sex: Male : 2000 Arrival Date: 12/02/2023 Time: 01:33 Bed 16 Private MD: ED Physician Trent Mendoza HPI: 12/01 02:00 This 23 yrs old Male presents to ER via Ambulatory with complaints of Shoulder Pain. cp 02:00 The patient or guardian complains of pain, that is acute. posterior aspect of right cp shoulder. Context: resulted from an unknown reason, The patient reports no decreased range of motion. The patient reports no obvious deformity. pain started after coughing and became worse after waking up the next day 2 days ago. Onset: The symptoms/episode began/occurred 2 day(s) ago. 02:00 Associated signs and symptoms: Pertinent positives: neck pain, Pertinent negatives: cp chest pain, Numbness in right hand and right arm Weakness in right hand and right arm injury. 02:00 Severity of symptoms: in the emergency department the symptoms are unchanged, despite cp home interventions. Historical: - Allergies: 01:56 No Known Allergies; vc1 - Home Meds: 01:56 None [Active]; vc1 - PMHx: 01:56 Anxiety; vc1 - PSHx: 01:56 None; vc1 - Immunization history:: Client reports receiving the 2nd dose of the Covid vaccine, Flu vaccine status is unknown. - Infectious Disease History:: Denies. - Social history:: Smoking status: Patient denies any tobacco usage or history of. Patient uses street drugs, marijuana. ROS: 02:05 MS/extremity: Positive for pain, of the right posterior shoulder, Negative for injury cp or acute deformity, decreased range of motion, paresthesias, 02:05 Constitutional: Negative for body aches, chills, fever, poor PO intake, cp 02:05 Neck: Positive for pain with movement, pain at rest, stiffness, of the right side of neck, 02:05 Cardiovascular: Negative for chest pain, palpitations, 02:05 Respiratory: Negative for cough, shortness of breath, wheezing, 02:05 Abdomen/GI: Negative for abdominal pain, nausea, vomiting, and diarrhea, 02:05 All other systems are negative, Exam: 02:10 Constitutional: The patient appears in no acute distress, alert, awake, non-toxic, well cp developed, well nourished, uncomfortable, 02:10 Head/Face: Normocephalic, atraumatic. cp 02:10 Neck: ROM/movement: pain, that is mild, with any movement, tenderness to palpation right lateral neck, 02:10 Chest/axilla: Inspection: normal, Palpation: is normal, no crepitus, no tenderness, 02:10 Cardiovascular: Rate: normal, Rhythm: regular, 02:10 Respiratory: the patient does not display signs of respiratory distress, Respirations: normal, no use of accessory muscles, no retractions, labored breathing, is not present, Breath sounds: are clear throughout, no decreased breath sounds, no stridor, no wheezing, 02:10 Abdomen/GI: Inspection: abdomen appears normal, 02:10 Back: pain, that is moderate, of the right trapezius and right scapular area, ROM is painful, with all movement, no spinal tenderness to palpation, 02:10 Musculoskeletal/extremity: Extremities: noted in the right hand and right arm: Perfusion: the extremity is normally perfused throughout, Sensation intact. 02:10 Skin: cellulitis, is not appreciated, no rash present. Vital Signs: 01:54 Weight 90.72 kg; Height 5 ft. 10 in. ; Pain 10/10; vc1 01:58 BP 140 / 60; Pulse 60; Resp 20; Temp 98; Pulse Ox 98% ; vc1 01:54 Body Mass Index 28.70 (90.72 kg, 177.8 cm) vc1 01:54 Pain Scale: Adult vc1 MDM: 01:53 Patient medically screened. cp 02:30 Differential diagnosis: tendonitis, strain, rotator cuff injury, bursitis. cp 02:48 Data reviewed: vital signs, nurses notes, radiologic studies, plain films. cp 02:48 I considered the following discharge prescriptions or medication management in the emergency department Medications were administered in the Emergency Department. See MAR. Counseling: I had a detailed discussion with the patient and/or guardian regarding the historical points, exam findings, and any diagnostic results supporting the discharge/admit diagnosis, radiology results, the need for outpatient follow up, a orthopedic surgeon, to return to the emergency department if symptoms worsen or persist or if there are any questions or concerns that arise at home. Response to treatment: the patient's symptoms have mildly improved after treatment, and as a result, I will discharge patient. 12/01 02:06 Order name: ELLIAY Shoulder RIGHT 2 view vc1 12/01 02:51 Order name: Junie; Complete Time: 02:55 cp Administered Medications: 02:38 Drug: Ketorolac IM 60 mg IM once Route: IM; Site: left ventrogluteal; vc1 02:50 Follow up: Response: No adverse reaction pc2 Disposition Summary: 12/02/23 02:49 Discharge Ordered Notes: Location: Home cp Problem: new cp Symptoms: have improved cp Condition: Stable cp Diagnosis - Dorsalgia, unspecified cp Followup: cp - With: Private Physician - When: 2 - 3 days - Reason: Worsening of condition Discharge Instructions: - Discharge Summary Sheet cp - Acute Back Pain, Adult cp - Musculoskeletal Pain cp - Back Exercises cp Forms: - Medication Reconciliation Form cp - Antibiotic Education cp - Prescription Opioid Use cp - Patient Portal Instructions cp - Leadership Thank You Letter cp Prescriptions: - Diclofenac Sodium 75 mg Oral Tablet Sustained Release - take 1 tablet ORAL route 2 times per day; 30 tablet; Refills: 0, Product cp Selection Permitted - methocarbamol 750 mg Oral tablet - take 1 tablet ORAL route 3 times per day; 30 tablet; Refills: 0, Product cp Selection Permitted Signatures: Dispatcher [employer] EDMS Trent Gil PA PA cp Calcote, Vanessa RN RN vc1 Brigid bojorquez RN pc2 Corrections: (The following items were deleted from the chart) 02:00 02:00 Shoulder Right 2 View+RAD.RAD.BRZ ordered. EDMS EDMS 02:07 02:07 Shoulder Right 2 View+RAD.RAD.BRZ ordered. EDMS EDMS
--- NOTE | 2023-12-02 02:49 | ER ---
Nurse's Notes [facility] Name: Deep Ramos Age: 23 yrs Sex: Male : 2000 Arrival Date: 12/02/2023 Time: 01:33 Bed 16 Private MD: Diagnosis: Dorsalgia, unspecified Presentation: 12/01 01:54 Chief complaint: Patient states: pain in right shoulder, having trouble moving from the vc1 pain. Coronavirus screen: Client denies travel out of the [place] in the last 14 days. At this time, the client does not indicate any symptoms associated with coronavirus-19. Ebola Screen: Patient negative for fever greater than or equal to 101.5 degrees Fahrenheit, and additional compatible Ebola Virus Disease symptoms Patient denies exposure to infectious person. Patient denies travel to an Ebola-affected area in the 21 days before illness onset. No symptoms or risks identified at this time. Initial Sepsis Screen: Does the patient meet any 2 criteria? No. Patient's initial sepsis screen is negative. Does the patient have a suspected source of infection? No. Patient's initial sepsis screen is negative. Risk Assessment: Do you want to hurt yourself or someone else? Patient reports no desire to harm self or others. Onset of symptoms was November 30, 2023. 01:54 Method Of Arrival: Ambulatory vc1 01:54 Acuity: KAIT 4 vc1 Triage Assessment: 02:01 General: Appears in no apparent distress. uncomfortable, slender, well groomed, vc1 Behavior is calm, cooperative. Pain: Complains of pain in right scapular area Pain does not radiate. Pain currently is 10 out of 10 on a pain scale. Quality of pain is described as sharp, Pain began 2-3 days ago. Aggravated by repositioning, Noted to be grimacing, guarding. Neuro: Level of Consciousness is awake, alert, obeys commands, Oriented to person, place, time, situation, Appropriate for age. Cardiovascular: Patient's skin is warm and dry. Respiratory: Airway is patent Respiratory effort is even, unlabored, Respiratory pattern is regular, symmetrical. Derm: Skin is intact, is healthy with good turgor, Skin is dry, Skin is normal. Musculoskeletal: resistant to movement Reports pain in right scapular area Denies. Historical: - Allergies: 01:56 No Known Allergies; vc1 - Home Meds: 01:56 None [Active]; vc1 - PMHx: 01:56 Anxiety; vc1 - PSHx: 01:56 None; vc1 - Immunization history:: Client reports receiving the 2nd dose of the Covid vaccine, Flu vaccine status is unknown. - Infectious Disease History:: Denies. - Social history:: Smoking status: Patient denies any tobacco usage or history of. Patient uses street drugs, marijuana. Screenin:57 Abuse screen: Denies threats or abuse. Nutritional screening: No deficits noted. vc1 Tuberculosis screening: No symptoms or risk factors identified. 02:49 [facility] ED Fall Risk Assessment (Adult) History of falling in the last 3 months, pc2 including since admission No falls in past 3 months (0 pts) Confusion or Disorientation No (0 pts) Intoxicated or Sedated No (0 pts) Impaired Gait No (0 pts) Mobility Assist Device Used No (0 pt) Altered Elimination No (0 pt) Score/Fall Risk Level 0 - 2 = Low Risk. Assessment: 02:35 General: Appears in no apparent distress. uncomfortable, Behavior is calm, cooperative. pc2 Neuro: Level of Consciousness is awake, alert, obeys commands, Oriented to person, place, time, situation. Cardiovascular: Patient's skin is warm and dry. Respiratory: Airway is patent Respiratory effort is even, unlabored, Respiratory pattern is regular, symmetrical. GI: No signs and/or symptoms were reported involving the gastrointestinal system. : No signs and/or symptoms were reported regarding the genitourinary system. EENT: No signs and/or symptoms were reported regarding the EENT system. Musculoskeletal: Circulation, motion, and sensation intact. Range of motion: limited in right shoulder Tenderness present in right scapular area Reports no obvious injury, pain started 2 days ago after carrying case of water on shoulder. Vital Signs: 01:54 Weight 90.72 kg; Height 5 ft. 10 in. ; Pain 10/10; vc1 01:58 BP 140 / 60; Pulse 60; Resp 20; Temp 98; Pulse Ox 98% ; vc1 01:54 Body Mass Index 28.70 (90.72 kg, 177.8 cm) vc1 01:54 Pain Scale: Adult vc1 ED Course: 01:37 Patient arrived in ED. gm2 01:40 Trent Gil PA is PHCP. cp 01:40 Trent Mendoza MD is Attending Physician. cp 01:56 Triage completed. vc1 01:56 Arm band placed on right wrist. vc1 02:37 Brigid bojorquez, RN is Primary Nurse. pc2 02:44 X-ray(s) taken. pc2 02:49 XRAY Shoulder RIGHT 2 view In Process Unspecified. EDMS 02:49 Patient has correct armband on for positive identification. Bed in low position. Call pc2 light in reach. Side rails up X2. Provided Education on: POC and timeframe. 03:00 Sling applied to right arm. pc2 03:00 No provider procedures requiring assistance completed. Patient did not have IV access pc2 during this emergency room visit. Administered Medications: 02:38 Drug: Ketorolac IM 60 mg IM once Route: IM; Site: left ventrogluteal; vc1 02:50 Follow up: Response: No adverse reaction pc2 Medication: 02:49 VIS not applicable for this client. pc2 Outcome: 02:49 Discharge ordered by MD. cp 03:00 Discharged to home ambulatory, pc2 03:00 Condition: stable 03:00 Discharge instructions given to patient, Instructed on discharge instructions, follow up and referral plans. no drinking with medication, medication usage, Demonstrated understanding of instructions, follow-up care, medications, Prescriptions given X 2, 03:01 Patient left the ED. pc2 Signatures: Dispatcher [employer] EDWY Trent Gil PA PA cp Calcote, Vanessa, RN RN vc1 Shadia Aldrich gm2 Brigid bojorquez, RN RN pc2
[2023-12-02 03:13] VITALS: BP 140/60; TEMP 98; O2SAT 98
--- NOTE | 2023-12-04 11:32 | RAD REPORT ---
EXAM DESCRIPTION: RAD - Shoulder Right 2 View - 12/02/2023 2:48 am CLINICAL HISTORY: PAIN TECHNIQUE: Two views of the right shoulder. COMPARISON: No relevant prior studies available. FINDINGS: Bones/joints: Unremarkable. No acute fracture. No dislocation. Soft tissues: Unremarkable. IMPRESSION: No acute injury. Electronically signed by: Jamison José MD 12/02/2023 03:18 AM CDT RP Due to temporary technical issues with the PACS/Fluency reporting system, reports are being signed by the in house radiologist without review as a courtesy to ensure prompt reporting. The interpreting r adiologist is fully responsible for the content of the report.
== END 2023-12-02 03:01 | disposition home or self-care (01) ==
LOC: ER 01:33
DX: M54.9 Dorsalgia, unspecified (principal); M54.2 Cervicalgia; M25.511 Pain in right shoulder
CPT/HCPCS: 96372; 99284